=== PATIENT | female | born 1945 | race Caucasian/White ===

== ENCOUNTER 2021-06-26 15:21 | Emergency (ER) | payer MEDICARE, OTHER ==
[2021-06-26 15:49] LABS: BASO # 0.04 K/mm3 (0.02-0.10); EOS # 0.15 K/mm3 (0.04-0.40); EOS % 1.9 % (1.0-5.0); HEMATOCRIT 35.4 % (37.0-47.0); HEMOGLOBIN 12.2 g/dL (12.5-16.0); LYMPH# 2.03 K/mm3 (1.50-4.00); MEAN CELL VOLUME 93 fl (78-100); MEAN CORPUSCULAR HEMOGLOBIN 32 pg (27-31); MEAN CORPUSCULAR HGB CONC 35 g/dL (33-37); NEU # 4.81 K/mm3 (1.40-6.50); PLATELET COUNT 282 K/mm3 (130-400); RED CELL DISTRIBUTION WIDTH 13.1 % (11.5-14.5)
[2021-06-26 15:54] LABS: ALBUMIN 3.2 g/dL (3.4-4.8)
[2021-06-26 15:55] LABS: POTASSIUM 3.6 mmol/L (3.5-5.1)
[2021-06-26 15:56] LABS: CALCIUM 9.1 mg/dL (8.3-10.5)
[2021-06-26 15:57] LABS: TOTAL PROTEIN 6.4 g/dL (6.2-8.1)
[2021-06-26 15:59] LABS: TOTAL BILIRUBIN 0.2 mg/dL (0.2-1.2)
[2021-06-26 18:28] LABS: URINE APPEARANCE HAZY; URINE BILIRUBIN NEGATIVE (NEGATIVE); URINE BLOOD TRACE (NEGATIVE); URINE COLOR YELLOW; URINE GLUCOSE 50 mg/dL (NEGATIVE); URINE KETONE NEGATIVE (NEGATIVE); URINE LEUKOCYTE ESTERASE TRACE (NEGATIVE); URINE NITRATE NEGATIVE (NEGATIVE); URINE PROTEIN(semi-quant) 2+ (NEGATIVE); URINE UROBILINOGEN NORMAL (NORMAL)
[2021-06-26] MEDS ORDERED: DONEPEZIL HCL5 M1 (18:50)
[2021-06-26] MEDS ORDERED: LEVOTHYROXIN0.075 MG (18:50)
[2021-06-26] MEDS ORDERED: DONEPEZIL HCL10 MG PO (18:50)
[2021-06-26] MEDS ORDERED: DROPLET NE EAC (18:50)
[2021-06-26] MEDS ORDERED: CIPROFLOXACIN250 MG PO (18:50)
[2021-06-26] MEDS ORDERED: GABAPENTIN TAB600 MG (18:51)
[2021-06-26] MEDS ORDERED: LOVASTATIN40 M1 (18:51)
[2021-06-26] MEDS ORDERED: ZOLPIDEM TART10 MG (18:51)
[2021-06-26 19:32] VITALS: BP 141/63
== END 2021-06-26 19:32 | disposition home or self-care (01) ==
LOC: ED 15:21
PROVIDERS: Family Medicine
DX: F03.90 Unspecified dementia, unspecified severity, without behavioral disturbance, psychotic disturbance, mood disturbance, and anxiety (principal); I95.1 Orthostatic hypotension; E10.649 Type 1 diabetes mellitus with hypoglycemia without coma; I10 Essential (primary) hypertension; E78.5 Hyperlipidemia, unspecified; Z86.16 Personal history of COVID-19; Z79.899 Other long term (current) drug therapy